=== PATIENT | male | born 1945 | race Caucasian/White ===

== ENCOUNTER 2017-01-08 10:58 | Day surgery (SDC) | payer OTHER ==
[~2017-01-08] VITALS: Ht 170.2 cm; Wt 86.0 kg
[~2017-01-08 10:58] MED LIST: ATORVASTATIN; LISINOPRIL; METOPROLOL
[2017-01-08 11:56] VITALS: Ht 170.2 cm; Wt 86.0 kg
[2017-01-08] MEDS ORDERED: FENOFIBRATE PO (12:04)
[2017-01-08 12:08] VITALS: BP 131/89; PULSE 89; RESP 13
--- NOTE | 2017-01-08 12:25 | OPPN ---
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
[2017-01-08] MEDS ORDERED: PROPOFOL 20 ML ONE (12:26)
[2017-01-08 12:48] VITALS: BP 149/85; PULSE 68; RESP 16
--- NOTE | 2017-01-08 21:30 | GILP ---
DATE OF PROCEDURE: NAME OF PROCEDURE: Esophagogastroduodenoscopy and biopsy. SURGEON: Maddie Shah MD PREOPERATIVE DIAGNOSIS: Abdominal pain. POSTOPERATIVE DIAGNOSES: 1. Gastritis with erosions. 2. Gastric mucosal biopsies were taken for Helicobacter pylori test. INDICATION FOR THE PROCEDURE: Mr. Aldo Soliman is a 71-year-old male patient who had upper abdomina l pain not responding to therapy. The patient was scheduled for endoscopic examination for further evaluation. The procedure and possible complications are well explained to the patient, he understood and consen vasyl to the procedure. DESCRIPTION OF PROCEDURE: Under the influence of anesthesia, the gastroscope was carefully introduc ed into the esophagus and under direct vision it was advanced to the stomach and through the pylorus into the duodenal bulb and descending duodenum. FINDINGS: ESOPHAGUS: The mucosa was normal. STOMACH: The patient had gastritis with erosions. Gastric mucosal biopsies were taken for H. pylor i test. DUODENUM: Normal. He tolerated the procedure very well and there was no complication from the procedure. At the end o f the procedure he was awake with stable vital signs. He was discharged home to the care of his [facility]. IMPRESSION: Please see postoperative diagnoses. PLAN: 1. Omeprazole 40 mg p.o. q.a.m. 2. Await H. pylori test report. Dictated By: MADDIE BRAR/KHOA Conf#: [id number] DID#: [id number]
--- NOTE | 2017-01-09 11:39 | CONS ---
PATIENT NAME: ALDO PHAM DATE OF ADMISSION: DATE OF CONSULTATION: 12/15/2016 Dear , I thank you very much for this kind referral. Mr. Aldo Pham is a 71-year-old male patient who has been referred to me for further evaluation of abdominal pain and bloating. The patient states his appetite has been somewhat poor. He is not taking any nonsteroidal anti-inflammatory agents. No history of gallstones or liver disease. The patient denies any change in the bowel habits or rectal bleeding. The patient had colonoscopy 1-1/2 years ago, and he was noted to have diverticulosis of the colon. He is hypertensive. He has diabetes. The patient had coronary artery disease, and he is status post coronary artery stent placement. No lung disease or kidney disease. He has hyperlipidemia. SOCIAL HISTORY: Nonsmoker. No alcohol abuse. No family history of gastrointestinal tract neoplasm. ALLERGIES: NO DRUG ALLERGIES. MEDICATION: 1. Metoprolol. 2. Lisinopril. 3. Fenofibrate. PHYSICAL EXAMINATION: VITALS: He is 5 feet 7 inches tall, weighs 190 pounds. Normal heart sounds. LUNGS: Clear. ABDOMEN: Soft. No masses. Normal bowel sounds. NEUROLOGICAL: Normal neurological exam. IMPRESSION: 1. Upper abdominal pain associated with bloating. 2. He complains loss of appetite. 3. The patient had colonoscopy 1-1/2 years ago, and he was noted to have diverticulosis of the colon. 4. Hypertension. 5. Diabetes mellitus. 6. Coronary artery disease and status post coronary artery stent placement. 7. Hyperlipidemia. PLAN: 1. Upper endoscopy for further evaluation. 2. The patient was advised high-fiber diet and weight loss. Because of the patient's age and obesity with a short thick neck, he needs monitored anesthesia care. 3. The procedure and possible complications were well explained to the patient. He understands and consents to the procedure. I thank you once again. With warmest personal regards, Dictated By: MD ZONIA Stewart/fab/sigrid /Document#: [id number]
== END 2017-01-08 14:51 | disposition home or self-care (01) ==
LOC: GIL 10:58
PROVIDERS: ATTEND Internal Medicine Gastroenterology
DX: K29.30 Chronic superficial gastritis without bleeding (principal); I10 Essential (primary) hypertension; E11.9 Type 2 diabetes mellitus without complications; E78.5 Hyperlipidemia, unspecified; I25.10 Atherosclerotic heart disease of native coronary artery without angina pectoris; Z95.5 Presence of coronary angioplasty implant and graft
CPT/HCPCS: 88305; 88312